=== PATIENT | female | born 1990 | race American Indian/Alaskan Native ===

== ENCOUNTER 2016-07-25 21:32 | Emergency (ER) | payer MEDICAID ==
[2016-07-25 21:47] VITALS: BP 138/95
[2016-07-25] MEDS ORDERED: Sulfamethoxazole/Trimethoprim 800-160 MG Tab PO ONE (22:41)
--- NOTE | 2016-07-25 22:48 | EDM.PDOC ---
ED HPI RENAL/ - General Chief Complaint: Genitourinary Problem Stated Complaint: BLADDER INFECTION Time Seen by Provider: 07/25/16 22:35 Source: Reports: Patient History Limitations: Reports: No limitations - History of Present Illness INITIAL COMMENTS - FREE TEXT/NARRATIVE: 25 yo female here with dysuria. No fever, flank pain, nausea. Symptom Onset Date: 07/25/16 Timing/Duration: Reports: Hour(s):, Gradual onset Location: Reports: urethral Quality: Reports: burning Severity: moderate Improves with: Reports: other (none) Worsens with: Reports: urinating Associated Symptoms: Reports: other (None) Treatment(s) INSIDE UPHOLSTERER: Reports: Other (see below) (None) - Related Data Allergies/ADRs: Allergies Allergy/AdvReac Type Severity Reaction Status Date / Time No Known Allergies Allergy Verified 07/25/16 21:48 Home Meds: Home Meds Amphetamine/Dextroamphetamine [Adderall] 10 mg PO BID 03/22/13 [History] FLUoxetine [PROzac] 10 mg PO DAILY 03/22/13 [History] Fludrocortisone [Florinef] 0.1 mg PO DAILY 03/22/13 [History] Hydrocortisone [Cortef] 5 mg PO BID 03/22/13 [History] Lisinopril 10 mg PO DAILY 03/22/13 [History] traZODone 25 mg PO BEDTIME 03/22/13 [History] Sulfamethoxazole/Trimethoprim [Bactrim Ds Tablet] 1 each PO Q12H #10 tablet [Rx] Past Medical History - Past Health History Medical/Surgical History: Denies Medical/Surgical History Psychiatric History: Reports: ADHD Social & Family History - Tobacco Use Smoking Status *Q: Never Smoker Second Hand Smoke Exposure: No - Alcohol Use Days Per Week of Alcohol Use: 0 - Recreational Drug Use Recreational Drug Use: No ED ROS GENERAL - Review of Systems Review Of Systems: See Below Constitutional: Reports: no symptoms GI/Abdominal: Reports: No symptoms : Reports: dysuria, frequency, urgency. Denies: flank pain, hematuria, incontinence, urinary retention Musculoskeletal: Reports: no symptoms Skin: Reports: no symptoms ED EXAM, RENAL/ - Physical Exam Exam: See Below Exam Limited By: No limitations General Appearance: alert, WD/WN, no apparent distress Eye Exam: bilateral eye: normal inspection Ears: normal external exam, normal canal, hearing grossly normal Nose: normal inspection, normal mucosa, no blood Throat/Mouth: Normal voice, No airway compromise Head: atraumatic, normocephalic Neck: normal inspection Respiratory/Chest: no respiratory distress, no accessory muscle use Back Exam: normal inspection. No: CVA tenderness (R), CVA tenderness (L) Extremities: normal inspection, non-tender, no pedal edema Neurological: alert, oriented, CN II-XII intact, normal cognition, normal gait, no motor/sensory deficits Psychiatric: normal affect, normal mood Skin Exam: Warm, Dry, Intact, Normal color, No rash Lymphatic: no adenopathy Course - Vital Signs Text/Narrative:: Bactrim DS 1 po Last Recorded V/S: Last Vital Signs Temp 36.8 C 07/25/16 21:39 Pulse 94 07/25/16 21:39 Resp 22 H 07/25/16 21:39 BP 138/95 H 07/25/16 21:39 Pulse Ox - Orders/Labs/Meds Orders: Active Orders 24 hr Category Date Time Status CULTURE URINE [RM] Stat Lab 07/25/16 22:38 Ordered Labs: Laboratory Tests 07/25/16 Range/Units 22:17 Urine Color Yellow (YELLOW) Urine Appearance Clear (CLEAR) Urine pH 7.0 H (5.0-6.5) Ur Specific [place] 1.010 (1.010-1.025) Urine Protein Negative (NEGATIVE) mg/dL Urine Glucose (UA) Normal (NEGATIVE) mg/dL Urine Ketones Negative (NEGATIVE) mg/dL Urine Occult Blood Large H (NEGATIVE) Urine Nitrite Negative (NEGATIVE) Urine Bilirubin Negative (NEGATIVE) Urine Urobilinogen Normal (NEGATIVE) mg/dL Ur Leukocyte Esterase Large H (NEGATIVE) Urine RBC 20-30 H (0) Urine WBC 10-20 H (0) Ur Squamous Epith Cells Moderate H (NS,R,O) Urine Bacteria Few H (NS) Meds: Medications Discontinued Medications Generic Name Dose Route Start Last Admin Trade Name Freq PRN Reason Stop Dose Admin Trimethoprim/Sulfamethoxazole 1 tab 07/25/16 22:41 Septra Ds PO 07/25/16 22:42 ONETIME ONE Departure - Departure Time of Disposition: 22:50 Disposition: Home, Self-Care 01 Condition: good Clinical Impression: Cystitis Prescriptions: Sulfamethoxazole/Trimethoprim [Bactrim Ds Tablet] 1 each PO Q12H #10 tablet Referrals: Hanane Irving NP [Primary Care Provider] - Forms: ED Department Discharge Additional Instructions: Take Bactrim DS every 12 hrs until gone. If not any better after 3 days, call your doctor who can check on your urine culture and see if you need a change. May take AZO for the discomfort in the meantime. Drink ample fluids. - My Orders Last 24 Hours: My Active Orders 07/25/16 22:38 CULTURE URINE [RM] Stat - Assessment/Plan Last 24 Hours: My Active Orders 07/25/16 22:38 CULTURE URINE [RM] Stat
== END 2016-07-25 22:56 | disposition home or self-care (01) ==
LOC: FB.ED 21:32
DX: N30.90 Cystitis, unspecified without hematuria (principal)
CPT/HCPCS: 81001; 87086; 99283; A9270

== ENCOUNTER 2018-08-16 23:05 | Emergency (ER) | payer MEDICAID ==
[2018-08-16] MEDS ORDERED: Albuterol 8 GM Inhaler INH ONE (23:06)
[2018-08-16] MEDS ORDERED: Acetaminophen/Codeine 300-30 MG Tab PO ONE (23:06)
[2018-08-16] MEDS ORDERED: Ketorolac 60 MG/2 ML SDV IM ONE (23:39)
--- NOTE | 2018-08-17 00:43 | ER ---
DATE SEEN: 08/16/2018 CHIEF COMPLAINT: Tooth pain. HISTORY OF PRESENT ILLNESS: A 27-year-old female with tooth pain for the last few days, worsened tonight, radiates to the front of face and head causing a headache. REVIEW OF SYSTEMS: Mild sore throat, cough, and shortness of breath. Also, feels anxious. No fever. PAST MEDICAL HISTORY: Hypertension, ADHD, anxiety, and depression. ALLERGIES: None. SOCIAL HISTORY: Smokes occasionally. PHYSICAL EXAMINATION: VITAL SIGNS: Blood pressure 155/110. GENERAL: She is afebrile and normotensive and her oxygenation is normal. CHEST: Clear. HEENT: Oral exam revealed a dental abscess, old cavity rather in the front incisors. NECK: Supple. CARDIOVASCULAR: Normal. CHEST: Clear. MENTAL STATUS: Anxious. LABORATORY DATA: None. IMPRESSION: 1. Dental infection. 2. Headache. 3. Hypertension. 4. Anxiety. PLAN: Ketorolac 60 mg IM. I sent her home with a prescription of Tylenol No. 3 to use p.r.n. every 8 hours and albuterol p.r.n. to use for bronchitis or shortness of breath. She is advised to follow up with PCP or dentist next week. Return to the ED with any worsening symptoms. TIME SEEN: 2335 hours. /[id number] MARYBETH/TREY
[2018-08-17 03:21] VITALS: BP 168/114
== END 2018-08-17 00:40 | disposition home or self-care (01) ==
LOC: FB.ED 23:05
DX: K04.7 Periapical abscess without sinus (principal); F41.9 Anxiety disorder, unspecified; I10 Essential (primary) hypertension; F32.9 Major depressive disorder, single episode, unspecified
CPT/HCPCS: 96372; 99282; A9270; J1885

== ENCOUNTER 2019-03-13 08:39 | Emergency (ER) | payer MEDICAID ==
[2019-03-13] MEDS ORDERED: hydrALAZINE 20 MG/ML SDV IM ONE (08:59)
[2019-03-13] MEDS ORDERED: Aspirin 81 MG Tab.Chew PO ONE (09:00)
[2019-03-13] MEDS ORDERED: Metoprolol Succinate 25 MG Tab.ER PO ONE (09:10)
[2019-03-13 09:15] VITALS: PULSE 101
[2019-03-13] MEDS ORDERED: LORazepam 2 MG/ML SDV IM ONE (09:20)
--- NOTE | 2019-03-13 11:26 | EDM.PDOC ---
ED HPI GENERAL MEDICAL PROBLEM - General Chief Complaint: Chest Pain Stated Complaint: CHEST PAIN Time Seen by Provider: 03/13/19 08:55 Source of Information: Reports: Patient History Limitations: Reports: No Limitations - History of Present Illness INITIAL COMMENTS - FREE TEXT/NARRATIVE: Patient presented to the ED because of chest pain,perioral numbness and tingling ,hyperventilation. The chest pain started when she was hyperventilating ,denies any nausea or diaphoresis but c/o dyspnea. mid chest Pain Score (Numeric/FACES): 3 - Related Data Allergies Allergy/AdvReac Type Severity Reaction Status Date / Time No Known Allergies Allergy Verified 08/17/18 03:41 Home Meds: Home Meds Amphetamine/Dextroamphetamine [Adderall] 20 mg PO BID 03/22/13 [History] FLUoxetine [PROzac] 10 mg PO DAILY 03/22/13 [History] Fludrocortisone [Florinef] 0.1 mg PO DAILY 03/22/13 [History] Hydrocortisone [Cortef] 5 mg PO BID 03/22/13 [History] Lisinopril 20 mg PO DAILY 03/22/13 [History] traZODone 50 mg PO BEDTIME 03/22/13 [History] Potassium Chloride [Klor-Con 10] 40 meq PO DAILY 03/13/19 [History] Sulfamethoxazole/Trimethoprim [Bactrim Ds Tablet] 1 each PO BID #6 tablet [Rx] Past Medical History - Past Health History Medical/Surgical History: Denies Medical/Surgical History Cardiovascular History: Reports: Hypertension Psychiatric History: Reports: ADHD, Depression Social & Family History - Tobacco Use Smoking Status *Q: Never Smoker ED ROS GENERAL - Review of Systems Review Of Systems: See Below Constitutional: Reports: No Symptoms HEENT: Reports: No Symptoms Respiratory: Reports: Shortness of Breath Cardiovascular: Reports: Chest Pain Endocrine: Reports: No Symptoms GI/Abdominal: Denies: Nausea, Vomiting Musculoskeletal: Reports: No Symptoms Skin: Reports: No Symptoms Hematologic/Lymphatic: Reports: No Symptoms ED EXAM, GENERAL - Physical Exam Exam: See Below Exam Limited By: No Limitations General Appearance: Alert, WD/WN, No Apparent Distress Eye Exam: Bilateral Eye: PERRL Ears: Normal External Exam, Normal Canal, Normal TMs Nose: Normal Inspection, Normal Mucosa, No Blood Throat/Mouth: Normal Inspection, Normal Lips, Normal Teeth, Normal Oropharynx, Normal Voice Head: Atraumatic, Normocephalic Neck: Normal Inspection, Supple, Non-Tender GI/Abdominal: Normal Bowel Sounds, Soft, Non-Tender, No Organomegaly, No Distention, No Abnormal Bruit, No Mass, Pelvis Stable (Female) Exam: Other (suprapubic tenderness) Back Exam: Normal Inspection, Full Range of Motion Extremities: Normal Inspection, Normal Range of Motion, Non-Tender, No Pedal Edema, Normal Capillary Refill Course - Vital Signs Text/Narrative:: Labs/EKG/discussed with patient EKG-NSR Trop-neg Patient was found to have hypertensive crisis while in ED and was given: Hydralazine 20 mg IM Metoprolol 25 mg po x1 Norvasc 10 mg po x1 Her BP upon discharge was 141/88 and asymptomatic Last Recorded V/S: Last Vital Signs Temp 36.7 C 03/13/19 12:00 Pulse 101 H 03/13/19 12:00 Resp 17 03/13/19 12:00 BP 141/88 H 03/13/19 12:00 Pulse Ox 98 03/13/19 12:00 - Orders/Labs/Meds Labs: Laboratory Tests 03/13/19 03/13/19 03/13/19 Range/Units 09:30 09:30 09:30 WBC 15.9 H (4.5-12.0) X10-3/uL RBC 5.47 H (3.23-5.20) x10(6)uL Hgb 15.4 (11.5-15.5) g/dL Hct 45.5 (30.0-51.3) % MCV 83.3 (80-96) fL MCH 28.1 (27.7-33.6) pg MCHC 33.7 (32.2-35.4) g/dL RDW 13.9 (11.5-15.5) % Plt Count 368 (125-369) X10(3)uL MPV 8.1 (7.4-10.4) fL Neutrophils % (Manual) 84 H (46-82) % Lymphocytes % (Manual) 14 (13-37) % Monocytes % (Manual) 2 L (4-12) % D-Dimer, Quantitative (0.0-0.59) mg/LFEU Sodium 141 (135-145) mmol/L Potassium 3.1 L (3.5-5.3) mmol/L Chloride 103 (100-110) mmol/L Carbon Dioxide 26 (21-32) mmol/L BUN 10 (7-18) mg/dL Creatinine 0.6 (0.55-1.02) mg/dL Est Cr Clr Drug Dosing 105.34 mL/min Estimated GFR (MDRD) > 60 (>60) BUN/Creatinine Ratio 16.7 (9-20) Glucose 107 (80-116) mg/dL Calcium 8.8 (8.6-10.2) mg/dL Troponin I < 0.017 L (<0.017-0.056) ng/mL Urine Color (YELLOW) Urine Appearance (CLEAR) Urine pH (5.0-6.5) Ur Specific [place] (1.010-1.025) Urine Protein (NEGATIVE) mg/dL Urine Glucose (UA) (NORMAL) mg/dL Urine Ketones (NEGATIVE) mg/dL Urine Occult Blood (NEGATIVE) Urine Nitrite (NEGATIVE) Urine Bilirubin (NEGATIVE) Urine Urobilinogen (NEGATIVE) mg/dL Ur Leukocyte Esterase (NEGATIVE) Urine RBC (0-5) Urine WBC (0-5) Ur Squamous Epith Cells (NS,R,O) Urine Bacteria (NS) 03/13/19 03/13/19 Range/Units 09:30 10:42 WBC (4.5-12.0) X10-3/uL RBC (3.23-5.20) x10(6)uL Hgb (11.5-15.5) g/dL Hct (30.0-51.3) % MCV (80-96) fL MCH (27.7-33.6) pg MCHC (32.2-35.4) g/dL RDW (11.5-15.5) % Plt Count (125-369) X10(3)uL MPV (7.4-10.4) fL Neutrophils % (Manual) (46-82) % Lymphocytes % (Manual) (13-37) % Monocytes % (Manual) (4-12) % D-Dimer, Quantitative 0.27 (0.0-0.59) mg/LFEU Sodium (135-145) mmol/L Potassium (3.5-5.3) mmol/L Chloride (100-110) mmol/L Carbon Dioxide (21-32) mmol/L BUN (7-18) mg/dL Creatinine (0.55-1.02) mg/dL Est Cr Clr Drug Dosing mL/min Estimated GFR (MDRD) (>60) BUN/Creatinine Ratio (9-20) Glucose (80-116) mg/dL Calcium (8.6-10.2) mg/dL Troponin I (<0.017-0.056) ng/mL Urine Color Yellow (YELLOW) Urine Appearance Slightly cloudy (CLEAR) Urine pH 7.0 H (5.0-6.5) Ur Specific [place] 1.010 (1.010-1.025) Urine Protein Negative (NEGATIVE) mg/dL Urine Glucose (UA) Normal (NORMAL) mg/dL Urine Ketones Negative (NEGATIVE) mg/dL Urine Occult Blood Negative (NEGATIVE) Urine Nitrite Negative (NEGATIVE) Urine Bilirubin Negative (NEGATIVE) Urine Urobilinogen Normal (NEGATIVE) mg/dL Ur Leukocyte Esterase Large H (NEGATIVE) Urine RBC 0-5 (0-5) Urine WBC 10-20 H (0-5) Ur Squamous Epith Cells Moderate H (NS,R,O) Urine Bacteria Few H (NS) Meds: Medications Discontinued Medications Generic Name Dose Route Start Last Admin Trade Name Freq PRN Reason Stop Dose Admin Amlodipine Besylate 10 mg 03/13/19 11:45 03/13/19 11:34 Norvasc PO 03/13/19 11:46 10 mg ONETIME ONE Administration Aspirin 324 mg 03/13/19 09:00 03/13/19 09:02 Aspirin PO 03/13/19 09:01 324 mg ONETIME ONE Administration Hydralazine HCl 20 mg 03/13/19 08:59 03/13/19 09:02 Apresoline IM 03/13/19 09:00 20 mg ONETIME ONE Administration Lorazepam 1 mg 03/13/19 09:20 03/13/19 09:25 Ativan IM 03/13/19 09:21 1 mg ONETIME ONE Administration Metoprolol Succinate 25 mg 03/13/19 09:10 03/13/19 09:15 Toprol Xl PO 03/13/19 09:11 25 mg ONETIME ONE Administration Departure - Departure Time of Disposition: 11:30 Disposition: Home, Self-Care 01 Condition: Good Clinical Impression: Hypertension, Anxiety Prescriptions: Sulfamethoxazole/Trimethoprim [Bactrim Ds Tablet] 1 each PO BID #6 tablet Instructions: Urinary Tract Infection, Adult, Living With Anxiety, Hypertension Referrals: PCP,None [Primary Care Provider] - Forms: ED Department Discharge Additional Instructions: please read discharge instructions on high blood pressure,anxiety and uti exercise increase rest for the day bactrim ds twice daily for 3 days follow up with your doctor next week so your doctor can adjust your high blood pressure medication or add a different one
[2019-03-13] MEDS ORDERED: amLODIPine 5 MG Tab PO ONE (11:27)
[2019-03-13] MEDS ORDERED: amLODIPine 10 MG Tab PO ONE (11:45)
[2019-03-13 14:52] VITALS: BP 141/88
== END 2019-03-13 12:19 | disposition home or self-care (01) ==
LOC: FB.ED 08:39
DX: I10 Essential (primary) hypertension (principal); F41.9 Anxiety disorder, unspecified; F90.9 Attention-deficit hyperactivity disorder, unspecified type; F32.9 Major depressive disorder, single episode, unspecified; Z79.899 Other long term (current) drug therapy
CPT/HCPCS: 36415; 71046; 80048; 81001; 84484; 85025; 85379; 93005; 96372; 99284; A9270; J0360; J2060

== ENCOUNTER 2019-10-21 22:52 | Emergency (ER) | payer MEDICAID ==
[2019-10-21 22:59] VITALS: BP 171/109; PULSE 105
[2019-10-21] MEDS ORDERED: Ketorolac 30 MG/ML SDV IVPUSH ONE (23:08)
[2019-10-21] MEDS ORDERED: Sodium Chloride 0.9% 1,000 ML IV ONE (23:08)
--- NOTE | 2019-10-21 23:15 | EDM.PDOC ---
ED HPI GENERAL MEDICAL PROBLEM - General Chief Complaint: Genitourinary Problem Time Seen by Provider: 10/21/19 23:00 Source of Information: Reports: Patient History Limitations: Reports: No Limitations - History of Present Illness INITIAL COMMENTS - FREE TEXT/NARRATIVE: c/o b/l low back pain x 2w pt had worked at [employer] for nearly 2w after being around someone with COVID, pt has had no sxs pt seems worse with activity, not remember when she had her last BM, has had h/o constipation wonders if preg, LMP one month ago with normal flow not able to get into clinic d/t COVID pending and need for 14d quarantine has tried CBD oil, no other OTC meds Treatments [employer]: Reports: Other Medication(s) Bilateral Flank Pain Score (Numeric/FACES): 8 - Related Data Allergies Allergy/AdvReac Type Severity Reaction Status Date / Time No Known Allergies Allergy Verified 10/21/19 22:53 Home Meds: Home Meds Amphetamine/Dextroamphetamine [Adderall] 20 mg PO BID 03/22/13 [History] FLUoxetine [PROzac] 10 mg PO DAILY 03/22/13 [History] Fludrocortisone [Florinef] 0.1 mg PO DAILY 03/22/13 [History] Hydrocortisone [Cortef] 5 mg PO BID 03/22/13 [History] Lisinopril 20 mg PO DAILY 03/22/13 [History] traZODone 50 mg PO BEDTIME 03/22/13 [History] Potassium Chloride [Klor-Con 10] 40 meq PO DAILY 03/13/19 [History] Sulfamethoxazole/Trimethoprim [Bactrim Ds Tablet] 1 each PO BID #6 tablet 03/13/19 [Rx] Past Medical History - Past Health History Medical/Surgical History: Denies Medical/Surgical History Cardiovascular History: Reports: Hypertension Psychiatric History: Reports: ADHD, Depression Social & Family History - Tobacco Use Smoking Status *Q: Never Smoker - Caffeine Use Caffeine Use: Reports: None - Recreational Drug Use Recreational Drug Use: No ED ROS GENERAL - Review of Systems Review Of Systems: See Below Constitutional: Reports: No Symptoms HEENT: Reports: No Symptoms Respiratory: Reports: No Symptoms Cardiovascular: Reports: No Symptoms Endocrine: Reports: No Symptoms GI/Abdominal: Reports: No Symptoms : Reports: No Symptoms Musculoskeletal: Reports: Back Pain Skin: Reports: No Symptoms Neurological: Reports: No Symptoms Psychiatric: Reports: No Symptoms Hematologic/Lymphatic: Reports: No Symptoms Immunologic: Reports: No Symptoms ED EXAM, GENERAL - Physical Exam Exam: See Below Exam Limited By: No Limitations General Appearance: Alert, WD/WN, No Apparent Distress, Anxious Ears: Normal Canal, Hearing Grossly Normal Nose: Normal Inspection, Normal Mucosa Throat/Mouth: Normal Inspection, Normal Lips, Normal Voice, No Airway Compromise Head: Atraumatic, Normocephalic Neck: Normal Inspection, Supple, Non-Tender, Full Range of Motion Respiratory/Chest: No Respiratory Distress, Lungs Clear, Normal Breath Sounds Cardiovascular: Regular Rate, Rhythm, No Edema, No Murmur GI/Abdominal: Normal Bowel Sounds, Soft, Non-Tender, No Organomegaly, No Distention, Other (no abd tender) Back Exam: Normal Inspection, Full Range of Motion, Other (no point tender, no SI joint tender, no iliac crest tender, no spasm). No: CVA Tenderness (R), CVA Tenderness (L) Extremities: Normal Inspection, Normal Range of Motion, Non-Tender, No Pedal Edema Neurological: Alert, Oriented, CN II-XII Intact, Normal Cognition, No Motor/Sensory Deficits Psychiatric: Anxious Skin Exam: Warm, Dry, Intact, Normal Color, No Rash Lymphatic: No Adenopathy Course - Vital Signs Last Recorded V/S: Last Vital Signs Temp 36.6 C 10/21/19 22:52 Pulse 105 H 10/21/19 22:52 Resp 16 10/21/19 22:52 BP 171/109 H 10/21/19 22:52 Pulse Ox 99 10/21/19 22:52 - Orders/Labs/Meds Orders: Active Orders 24 hr Category Date Time Status Abdomen 2V AP Flat Upright [CR] Stat Exams 10/21/19 23:59 Ordered Labs: Laboratory Tests 10/21/19 10/21/19 10/21/19 Range/Units 23:35 23:35 23:35 WBC 15.0 H (4.5-12.0) X10-3/uL RBC 4.91 (3.23-5.20) x10(6)uL Hgb 13.7 (11.5-15.5) g/dL Hct 41.6 (30.0-51.3) % MCV 84.8 (80-96) fL MCH 27.9 (27.7-33.6) pg MCHC 32.8 (32.2-35.4) g/dL RDW 13.6 (11.5-15.5) % Plt Count 338 (125-369) X10(3)uL MPV 7.5 (7.4-10.4) fL Neut % (Auto) 59.3 (46-82) % Lymph % (Auto) 32.1 (13-37) % [place] % (Auto) 6.9 (4-12) % Eos % (Auto) 1 (1.0-5.0) % Baso % (Auto) 1 (0-2) % Neut # (Auto) 8.9 H (1.6-8.3) # Lymph # (Auto) 4.8 (0.6-5.0) # [place] # (Auto) 1.0 (0.0-1.3) # Eos # (Auto) 0.2 (0.0-0.8) # Baso # (Auto) 0.1 (0.0-0.2) # Sodium 139 (135-145) mmol/L Potassium 3.8 (3.5-5.3) mmol/L Chloride 104 (100-110) mmol/L Carbon Dioxide 27 (21-32) mmol/L BUN 14 (7-18) mg/dL Creatinine 0.8 (0.55-1.02) mg/dL Est Cr Clr Drug Dosing TNP Estimated GFR (MDRD) > 60 (>60) BUN/Creatinine Ratio 17.5 (9-20) Glucose 91 (80-116) mg/dL Calcium 8.4 L (8.6-10.2) mg/dL Total Bilirubin 0.4 (0.1-1.3) mg/dL AST 30 H (5-25) IU/L ALT 21 (12-36) U/L Alkaline Phosphatase 46 L (56-112) IU/L C-Reactive Protein 1.0 H (0.5-0.9) mg/dL Total Protein 7.0 (6.0-8.0) g/dL Albumin 3.3 L (3.5-5.2) g/dL Globulin 3.7 g/dL Albumin/Globulin Ratio 0.9 Urine Color (YELLOW) Urine Appearance (CLEAR) Urine pH (5.0-6.5) Ur Specific [place] (1.010-1.025) Urine Protein (NEGATIVE) mg/dL Urine Glucose (UA) (NORMAL) mg/dL Urine Ketones (NEGATIVE) mg/dL Urine Occult Blood (NEGATIVE) Urine Nitrite (NEGATIVE) Urine Bilirubin (NEGATIVE) Urine Urobilinogen (NEGATIVE) mg/dL Ur Leukocyte Esterase (NEGATIVE) Urine RBC (0-5) Urine WBC (0-5) Ur Squamous Epith Cells (NS,R,O) Urine Bacteria (NS) Urine HCG, Qual (NEGATIVE) 10/22/19 10/22/19 Range/Units 00:27 00:27 WBC (4.5-12.0) X10-3/uL RBC (3.23-5.20) x10(6)uL Hgb (11.5-15.5) g/dL Hct (30.0-51.3) % MCV (80-96) fL MCH (27.7-33.6) pg MCHC (32.2-35.4) g/dL RDW (11.5-15.5) % Plt Count (125-369) X10(3)uL MPV (7.4-10.4) fL Neut % (Auto) (46-82) % Lymph % (Auto) (13-37) % [place] % (Auto) (4-12) % Eos % (Auto) (1.0-5.0) % Baso % (Auto) (0-2) % Neut # (Auto) (1.6-8.3) # Lymph # (Auto) (0.6-5.0) # [place] # (Auto) (0.0-1.3) # Eos # (Auto) (0.0-0.8) # Baso # (Auto) (0.0-0.2) # Sodium (135-145) mmol/L Potassium (3.5-5.3) mmol/L Chloride (100-110) mmol/L Carbon Dioxide (21-32) mmol/L BUN (7-18) mg/dL Creatinine (0.55-1.02) mg/dL Est Cr Clr Drug Dosing Estimated GFR (MDRD) (>60) BUN/Creatinine Ratio (9-20) Glucose (80-116) mg/dL Calcium (8.6-10.2) mg/dL Total Bilirubin (0.1-1.3) mg/dL AST (5-25) IU/L ALT (12-36) U/L Alkaline Phosphatase (56-112) IU/L C-Reactive Protein (0.5-0.9) mg/dL Total Protein (6.0-8.0) g/dL Albumin (3.5-5.2) g/dL Globulin g/dL Albumin/Globulin Ratio Urine Color Yellow (YELLOW) Urine Appearance Clear (CLEAR) Urine pH 7.0 H (5.0-6.5) Ur Specific [place] 1.010 (1.010-1.025) Urine Protein Negative (NEGATIVE) mg/dL Urine Glucose (UA) Normal (NORMAL) mg/dL Urine Ketones Negative (NEGATIVE) mg/dL Urine Occult Blood Negative (NEGATIVE) Urine Nitrite Negative (NEGATIVE) Urine Bilirubin Negative (NEGATIVE) Urine Urobilinogen Normal (NEGATIVE) mg/dL Ur Leukocyte Esterase Moderate H (NEGATIVE) Urine RBC 0-5 (0-5) Urine WBC 5-10 H (0-5) Ur Squamous Epith Cells Few H (NS,R,O) Urine Bacteria Few H (NS) Urine HCG, Qual Negative (NEGATIVE) Meds: Medications Discontinued Medications Generic Name Dose Route Start Last Admin Trade Name Amy PRN Reason Stop Dose Admin Sodium Chloride 1,000 mls @ 999 mls/hr 10/21/19 23:08 10/21/19 23:54 Normal Saline IV 10/22/19 00:08 999 mls/hr .BOLUS ONE Administration Ketorolac Tromethamine 30 mg 10/21/19 23:08 10/21/19 23:54 Toradol IVPUSH 10/21/19 23:09 30 mg ONETIME ONE Administration - Re-Assessments/Exams Free Text/Narrative Re-Assessment/Exam: 10/22/19 01:13 hx and PE most c/w low back strain KUB 2v is fairly unremarkable, some stool throughout colon, no excessive, no AFL WBC 15k is mildly concerning altho appears to be baseline as pt has been 13-15k in past, no clinical evidence of infection (u/a neg, abd quite soft and NT in lower quadrants and flanks) pt states she is scheduled to go back to work in 2d, should do okay cannot exclude PID altho pain is back, not pelvis, no vag d/c pt does agree to take ibuprofen Departure - Departure Time of Disposition: 01:15 Disposition: Home, Self-Care 01 Condition: Good Clinical Impression: Low back strain - Discharge Information *PRESCRIPTION DRUG MONITORING PROGRAM REVIEWED*: Not Applicable *COPY OF PRESCRIPTION DRUG MONITORING REPORT IN PATIENT [facility]: Not Applicable Instructions: Lumbar Strain Forms: ED Department Discharge Additional Instructions: For pain and inflammation, take ibuprofen 200 mg 4 tabs 3 times a day for 5 days, longer if needed. Sleep on a firm mattress. Use a heating pad for 10 minutes several times a day. Avoid bending and twisting to the extent possible. To clean out the colon, drink a 10-ounce bottle of magnesium citrate later this morning. May return to work in 2 days. See your doctor in 5 days. Return to Emergency Department if you are feeling worse. Sepsis Event Note (ED) - Evaluation Sepsis Screening Result: No Definite Risk - Focused Exam Vital Signs: Vital Signs Temp Pulse Resp BP Pulse Ox 10/21/19 22:52 36.6 C 105 H 16 171/109 H 99 - My Orders Last 24 Hours: My Active Orders 10/21/19 23:59 Abdomen 2V AP Flat Upright [CR] Stat - Assessment/Plan Last 24 Hours: My Active Orders 10/21/19 23:59 Abdomen 2V AP Flat Upright [CR] Stat
== END 2019-10-22 01:35 | disposition home or self-care (01) ==
LOC: FB.ED 22:52
DX: S39.012A Strain of muscle, fascia and tendon of lower back, initial encounter (principal); I10 Essential (primary) hypertension; F32.9 Major depressive disorder, single episode, unspecified; F90.9 Attention-deficit hyperactivity disorder, unspecified type; Z79.899 Other long term (current) drug therapy; X58.XXXA Exposure to other specified factors, initial encounter
CPT/HCPCS: 36415; 74019; 80053; 81001; 81025; 85025; 86140; 96374; 99283; J1885; J7030; 99282

== ENCOUNTER 2021-02-07 19:14 | Emergency (ER) | payer MEDICAID ==
--- NOTE | 2021-02-07 20:00 | EDM.PDOC ---
ED HPI GENERAL MEDICAL PROBLEM - General Stated Complaint: CIRCULATION ISSUES WITH HBP Time Seen by Provider: 02/07/21 19:35 Source of Information: Reports: Patient, Family History Limitations: Reports: No Limitations - History of Present Illness INITIAL COMMENTS - FREE TEXT/NARRATIVE: Patient presented to the ED because of bilateral hand numbness with brief episode of purplish discoloration. There is no associated pain. - Related Data Allergies Allergy/AdvReac Type Severity Reaction Status Date / Time No Known Allergies Allergy Verified 02/07/21 19:35 Home Meds: Home Meds Amphetamine/Dextroamphetamine [Adderall] 20 mg PO BID 03/22/13 [History] FLUoxetine [PROzac] 10 mg PO DAILY 03/22/13 [History] Fludrocortisone [Florinef] 0.1 mg PO DAILY 03/22/13 [History] Hydrocortisone [Cortef] 5 mg PO BID 03/22/13 [History] Lisinopril 20 mg PO DAILY 03/22/13 [History] traZODone 50 mg PO BEDTIME 03/22/13 [History] Potassium Chloride [Klor-Con 10] 40 meq PO DAILY 03/13/19 [History] Sulfamethoxazole/Trimethoprim [Bactrim Ds Tablet] 1 each PO BID #6 tablet 03/13/19 [Rx] Past Medical History - Past Health History Medical/Surgical History: Denies Medical/Surgical History Cardiovascular History: Reports: Hypertension Psychiatric History: Reports: ADHD, Depression Social & Family History - Family History Family Medical History: No Pertinent Family History - Caffeine Use Caffeine Use: Reports: None ED ROS GENERAL - Review of Systems Review Of Systems: See Below Constitutional: Reports: No Symptoms HEENT: Reports: No Symptoms Respiratory: Reports: No Symptoms Cardiovascular: Reports: No Symptoms Endocrine: Reports: No Symptoms GI/Abdominal: Reports: No Symptoms : Reports: No Symptoms Musculoskeletal: Reports: No Symptoms Skin: Reports: Other (purplish discoloration for less than 5 minutes) ED EXAM, GENERAL - Physical Exam Exam: See Below Exam Limited By: No Limitations General Appearance: Alert, No Apparent Distress Ears: Normal External Exam, Normal Canal, Hearing Grossly Normal Ear Exam: Bilateral Ear: TM Red Nose: Normal Inspection, Normal Mucosa, No Blood Throat/Mouth: Normal Inspection, Normal Lips, Normal Teeth, Normal Oropharynx, Normal Voice Head: Atraumatic, Normocephalic Neck: Normal Inspection, Supple, Non-Tender, Full Range of Motion Respiratory/Chest: No Respiratory Distress, Lungs Clear, Normal Breath Sounds, No Accessory Muscle Use, Chest Non-Tender Cardiovascular: Normal Peripheral Pulses, Regular Rate, Rhythm, No Edema, No Gallop, No JVD, No Murmur, No Rub GI/Abdominal: Normal Bowel Sounds, Soft, Non-Tender, No Organomegaly Back Exam: Normal Inspection, Full Range of Motion Extremities: Normal Inspection, Normal Range of Motion, Non-Tender, No Pedal Edema, Normal Capillary Refill Neurological: Alert, Oriented, CN II-XII Intact Psychiatric: Normal Affect, Normal Mood Course - Vital Signs Text/Narrative:: Reassurance Last Recorded V/S: Last Vital Signs Temp 36.9 C 02/07/21 19:30 Pulse 100 02/07/21 20:19 Resp 18 02/07/21 20:19 BP 135/90 02/07/21 20:19 Pulse Ox 97 02/07/21 20:19 Departure - Departure Time of Disposition: 20:00 Disposition: Home, Self-Care 01 Condition: Good Clinical Impression: Raynauds phenomenon - Discharge Information Instructions: Raynaud Phenomenon Referrals: Hanane Irving NP [Primary Care Provider] - Forms: ED Department Discharge Additional Instructions: Please read discharge instructions on Raynaud's Phenomenon Avoid exposure to cold(especially your hands and feet) If it becomes bothersome-pain on your hands and feet, ulcerations then your doctor might prescribe a calcium channel sweetie
[2021-02-07 20:35] VITALS: PULSE 100
[2021-02-07 20:46] VITALS: BP 135/90
== END 2021-02-07 20:21 | disposition home or self-care (01) ==
LOC: FB.ED 19:14
DX: I73.00 Raynaud's syndrome without gangrene (principal); I10 Essential (primary) hypertension; Z79.899 Other long term (current) drug therapy
CPT/HCPCS: 99283

== ENCOUNTER 2021-02-25 19:46 | Emergency (ER) | payer MEDICAID ==
[2021-02-25] MEDS ORDERED: Azithromycin 250 MG Tab PO ONE (19:47)
--- NOTE | 2021-02-25 20:05 | EDM.PDOC ---
ED HPI GENERAL MEDICAL PROBLEM - General Stated Complaint: COVID SYMPTOMS Time Seen by Provider: 02/25/21 20:02 Source of Information: Reports: Patient History Limitations: Reports: No Limitations - History of Present Illness INITIAL COMMENTS - FREE TEXT/NARRATIVE: Melinda complains of sore throat,ear pain and cough x 1 week. has been taking left over Cephalexin ( 500 mg BID),with no results. Had COVID in 2020,and has been vaccinated. - Related Data Allergies Allergy/AdvReac Type Severity Reaction Status Date / Time No Known Allergies Allergy Verified 02/07/21 19:35 Home Meds: Home Meds Amphetamine/Dextroamphetamine [Adderall] 20 mg PO BID 03/22/13 [History] FLUoxetine [PROzac] 10 mg PO DAILY 03/22/13 [History] Fludrocortisone [Florinef] 0.1 mg PO DAILY 03/22/13 [History] Hydrocortisone [Cortef] 5 mg PO BID 03/22/13 [History] Lisinopril 20 mg PO DAILY 03/22/13 [History] traZODone 50 mg PO BEDTIME 03/22/13 [History] Potassium Chloride [Klor-Con 10] 40 meq PO DAILY 03/13/19 [History] Sulfamethoxazole/Trimethoprim [Bactrim Ds Tablet] 1 each PO BID #6 tablet 03/13/19 [Rx] Past Medical History - Past Health History Medical/Surgical History: Denies Medical/Surgical History Cardiovascular History: Reports: Hypertension Psychiatric History: Reports: ADHD, Depression Endocrine/Metabolic History: Reports: Obesity/BMI 30+, Other (See Below) Other Endocrine/Metabolic History: adrenal hyperplasia - Infectious Disease History Infectious Disease History: Reports: Novel Coronavirus - Past Surgical History Head Surgeries/Procedures: Reports: None Social & Family History - Family History Family Medical History: No Pertinent Family History - Caffeine Use Caffeine Use: Reports: Energy Drinks ED ROS ENT - Review of Systems Review Of Systems: Comprehensive ROS is negative, except as noted in HPI. ED EXAM, ENT - Physical Exam Exam: See Below Exam Limited By: No Limitations General Appearance: Alert, WD/WN Ears: TM Bulging, TM Erythema Nose: Normal Inspection Mouth/Throat: Pharyngeal Erythema, Tonsillar Erythema Head: Atraumatic Neck: Normal Inspection, Lymphadenopathy (R), Lymphadenopathy (L) Respiratory/Chest: No Respiratory Distress, Lungs Clear Cardiovascular: Normal Peripheral Pulses, Regular Rate, Rhythm Departure - Departure Time of Disposition: 20:04 Disposition: Home, Self-Care 01 Condition: Good Clinical Impression: Strep pharyngitis - Discharge Information - Problem List & Annotations (1) Strep pharyngitis SNOMED Code(s): 01248407 Code(s): J02.0 - STREPTOCOCCAL PHARYNGITIS Status: Acute (2) Otitis media SNOMED Code(s): 62940468 Code(s): H66.90 - OTITIS MEDIA, UNSPECIFIED, UNSPECIFIED EAR Status: Acute Qualifiers: Otitis media type: suppurative Chronicity: acute Spontaneous tympanic membrane rupture: without spontaneous rupture - Problem List Review Problem List Initiated/Reviewed/Updated: Yes - My Orders Last 24 Hours: Dm
== END 2021-02-25 20:30 | disposition home or self-care (01) ==
LOC: FB.ED 19:46
DX: J02.0 Streptococcal pharyngitis (principal); I10 Essential (primary) hypertension; E66.9 Obesity, unspecified; Z68.37 Body mass index [BMI] 37.0-37.9, adult; Z86.16 Personal history of COVID-19; Z79.899 Other long term (current) drug therapy
CPT/HCPCS: 99283; A9270

== ENCOUNTER 2022-01-31 16:55 | Emergency (ER) | payer MEDICAID ==
[2022-01-31 17:33] LABS: ESTIMATED GFR 101 mL/min (>60)
[2022-01-31 18:21] VITALS: BP 115/76; PULSE 104
== END 2022-01-31 18:10 | disposition home or self-care (01) ==
LOC: FB.ED 16:55
DX: M54.10 Radiculopathy, site unspecified (principal); M54.31 Sciatica, right side; I10 Essential (primary) hypertension; Z79.899 Other long term (current) drug therapy
CPT/HCPCS: 36415; 80053; 85025; 85379; 99283

== ENCOUNTER 2022-08-20 14:33 | Emergency (ER) | payer MEDICAID ==
[2022-08-20] MEDS ORDERED: Sodium Chloride 0.9% 10 ML Syringe FLUSH PRN (15:00)
[2022-08-20] MEDS ORDERED: Sodium Chloride 0.9% 1,000 ML IV ONE (15:00)
[2022-08-20] MEDS ORDERED: Ondansetron 4 MG/2 ML SDV IVPUSH ONE (15:05)
[2022-08-20 15:21] LABS: BASOPHILS ABSOLUTE AUTO 0.1 x10-3/uL (0.0-0.1); BASOPHILS PERCENT AUTO 0.6 % (0.2-1.5); EOSINOPHILS PERCENT AUTO 0.2 % (0.6-8.1); HEMATOCRIT 41.2 % (34.2-48.2); HEMOGLOBIN 13.7 g/dL (11.4-15.5); LYMPHOCYTES ABSOLUTE AUTO 4.3 x10-3/uL (1.0-4.4); LYMPHOCYTES PERCENT AUTO 31.4 % (18.4-52.1); MEAN CORPUSCULAR HEMOGLOBIN 27.4 pg (23.9-33.9); MEAN CORPUSCULAR HGB CONC 33.1 g/dL (31.9-34.8); MEAN CORPUSCULAR VOLUME 82.8 fL (76.7-100.5); MEAN PLATELET VOLUME 7.3 fL (7.1-12.4); MONOCYTES PERCENT AUTO 7.6 % (4.4-15.7); NEUTROPHILS ABSOLUTE AUTO 8.2 x10-3/uL (1.5-6.3); NEUTROPHILS PERCENT AUTO 60.2 % (30.8-76.2); PLATELET COUNT,PLT 329 x10(3)uL (151-488); RED BLOOD CELL COUNT 4.98 x10(6)uL (3.60-5.20); RED CELL DISTRIBUTION WIDTH 14.8 % (12.3-16.5); WHITE BLOOD CELL COUNT,WBC 13.6 x10-3/uL (3.0-10.3)
[2022-08-20 15:27] LABS: BLOOD UREA NITROGEN,BUN 9 mg/dL (7-18); BUN/CREATININE RATIO 11.3 (9-20); CALCIUM 9.3 mg/dL (8.6-10.2); CARBON DIOXIDE,CO2 26 mmol/L (21-32); CHLORIDE,CL 104 mmol/L (100-110); CREATININE 0.8 mg/dL (0.55-1.02); EST CRCL DRUG DOSING (CG) 73.19 mL/min; ESTIMATED GFR 101 mL/min (>60); GLUCOSE RANDOM 99 mg/dL (80-116); POTASSIUM,K 3.2 mmol/L (3.5-5.3); SODIUM,NA 139 mmol/L (135-145)
[2022-08-20 15:29] LABS: BILIRUBIN,URINE NEGATIVE (NEGATIVE); GLUCOSE,URINE NORMAL (NORMAL); KETONES,URINE 15 mg/dL (NEGATIVE); LEUKOCYTE ESTERASE,URINE SMALL (NEGATIVE); NITRITE,URINE NEGATIVE (NEGATIVE); OCCULT BLOOD,URINE NEGATIVE (NEGATIVE); PROTEIN,URINE NEGATIVE (NEGATIVE); UROBILINOGEN,URINE NORMAL (NEGATIVE)
[2022-08-20 15:32] LABS: A/G RATIO 0.9; ALANINE AMINOTRANSFERASE,ALT 24 U/L (12-36); ALBUMIN 3.6 g/dL (3.5-5.2); ALKALINE PHOSPHATASE 54 IU/L (56-112); ASPARTATE AMNIOTRANSFERASE,AST 22 IU/L (5-25); BILIRUBIN TOTAL 0.5 mg/dL (0.1-1.3); MAGNESIUM 1.8 mg/dL (1.8-2.5); PROTEIN TOTAL,TP 7.6 g/dL (6.0-8.0)
[2022-08-20 15:33] LABS: APPEARANCE,URINE SLIGHTLY CLOUDY (CLEAR); BACTERIA,URINE FEW (NS); COLOR,URINE YELLOW (YELLOW); MUCUS,URINE FEW (NS); RBC,URINE 0-5 (0-5); SQUAMOUS EPITHELIAL CELLS,UR MODERATE (NS,R,O); WBC,URINE 0-5 (0-5)
[2022-08-20 15:35] LABS: C-REACTIVE PROTEIN 1.2 mg/dL (0.5-0.9)
[2022-08-20 16:04] LABS: INFLUENZA A NAA NEGATIVE (NEGATIVE); INFLUENZA B NAA NEGATIVE (NEGATIVE)
[2022-08-20 16:05] LABS: CORONAVIRUS COVID-19 NAA NEGATIVE (NEGATIVE)
[2022-08-20 16:59] VITALS: BP 131/86; PULSE 103
== END 2022-08-20 16:55 | disposition home or self-care (01) ==
LOC: FB.ED 14:33
DX: R00.0 Tachycardia, unspecified (principal); E86.0 Dehydration; F41.9 Anxiety disorder, unspecified; Z20.822 Contact with and (suspected) exposure to COVID-19; I10 Essential (primary) hypertension; J45.909 Unspecified asthma, uncomplicated; E66.9 Obesity, unspecified; Z86.16 Personal history of COVID-19; Z79.899 Other long term (current) drug therapy; Z68.39 Body mass index [BMI] 39.0-39.9, adult
CPT/HCPCS: 0240U; 36415; 80053; 81001; 81025; 83735; 84484; 85025; 85379; 86140; 93005; 96361; 96374; 99285; J2405; J7030

== ENCOUNTER 2022-09-21 20:05 | Emergency (ER) | payer MEDICAID ==
[2022-09-21 20:52] LABS: HEMATOCRIT 41.6 % (34.2-48.2); HEMOGLOBIN 13.8 g/dL (11.4-15.5); MEAN CORPUSCULAR HEMOGLOBIN 27.6 pg (23.9-33.9); MEAN CORPUSCULAR HGB CONC 33.3 g/dL (31.9-34.8); RED BLOOD CELL COUNT 5.01 x10(6)uL (3.60-5.20); RED CELL DISTRIBUTION WIDTH 14.7 % (12.3-16.5); WHITE BLOOD CELL COUNT,WBC 11.9 x10-3/uL (3.0-10.3)
[2022-09-21 21:08] LABS: BILIRUBIN,URINE NEGATIVE (NEGATIVE); COLOR,URINE YELLOW (YELLOW); GLUCOSE,URINE NORMAL (NORMAL); KETONES,URINE NEGATIVE (NEGATIVE); LEUKOCYTE ESTERASE,URINE SMALL (NEGATIVE); NITRITE,URINE NEGATIVE (NEGATIVE); OCCULT BLOOD,URINE NEGATIVE (NEGATIVE); PROTEIN,URINE NEGATIVE (NEGATIVE); UROBILINOGEN,URINE NORMAL (NEGATIVE)
[2022-09-21 21:09] LABS: APPEARANCE,URINE CLEAR (CLEAR); BACTERIA,URINE FEW (NS); MUCUS,URINE FEW (NS); RBC,URINE 0-5 (0-5); SQUAMOUS EPITHELIAL CELLS,UR FEW (NS,R,O); WBC,URINE 0-5 (0-5)
[2022-09-21 21:12] LABS: AMPHETAMINES SCREEN, URINE POSITIVE (NEGATIVE); BARBITURATE SCREEN,URINE NEGATIVE (NEGATIVE); BENZODIAZEPINES SCREEN,URINE NEGATIVE (NEGATIVE); BUPRENORPHINE SCREEN,URINE NEGATIVE (NEGATIVE); METHADONE SCREEN, URINE NEGATIVE (NEGATIVE); METHAMPHETAMINE SCREEN, URINE NEGATIVE (NEGATIVE); OXYCODONE SCREEN,URINE NEGATIVE (NEGATIVE); PROPOXYPHENE SCREEN,URINE NEGATIVE (NEGATIVE); THC SCREEN,URINE NEGATIVE (NEGATIVE)
[2022-09-21 21:33] VITALS: BP 132/79; PULSE 86
== END 2022-09-21 21:26 | disposition home or self-care (01) ==
LOC: FB.ED 20:05
DX: R10.30 Lower abdominal pain, unspecified (principal); I10 Essential (primary) hypertension; J45.909 Unspecified asthma, uncomplicated; E66.9 Obesity, unspecified; Z68.36 Body mass index [BMI] 36.0-36.9, adult; Z86.16 Personal history of COVID-19
CPT/HCPCS: 36415; 80307; 81001; 85027; 99284

== ENCOUNTER 2022-11-27 19:01 | Emergency (ER) | payer MEDICAID ==
[2022-11-27 19:31] VITALS: BP 126/80; PULSE 100
[2022-11-27] MEDS: Ciprofloxacin 500 MG Tab PO ONE (19:52)
== END 2022-11-27 20:03 | disposition home or self-care (01) ==
LOC: FB.ED 19:01
DX: L73.9 Follicular disorder, unspecified (principal); I10 Essential (primary) hypertension; J45.909 Unspecified asthma, uncomplicated; E66.9 Obesity, unspecified; Z68.32 Body mass index [BMI] 32.0-32.9, adult
CPT/HCPCS: 99282; A9270

== ENCOUNTER 2023-01-14 09:50 | Emergency (ER) | payer MEDICAID ==
[2023-01-14] MEDS ORDERED: Ibuprofen 800 MG Tab PO ONE (10:36)
[2023-01-14 10:55] VITALS: BP 133/86; PULSE 111
== END 2023-01-14 10:52 | disposition home or self-care (01) ==
LOC: FB.ED 09:50
DX: R07.89 Other chest pain (principal); S33.5XXA Sprain of ligaments of lumbar spine, initial encounter; J45.909 Unspecified asthma, uncomplicated; E66.9 Obesity, unspecified; I10 Essential (primary) hypertension; Z79.899 Other long term (current) drug therapy
CPT/HCPCS: 93005; 99284; A9270

== ENCOUNTER 2023-03-07 19:23 | Emergency (ER) | payer MEDICAID ==
[2023-03-07] MEDS ORDERED: Nitrofurantoin Monohydrate/Macrocrystalline 100 MG Cap PO ONE (19:24)
[2023-03-07 19:53] LABS: BILIRUBIN,URINE NEGATIVE (NEGATIVE); GLUCOSE,URINE NORMAL (NORMAL); KETONES,URINE 15 mg/dL (NEGATIVE); LEUKOCYTE ESTERASE,URINE LARGE (NEGATIVE); NITRITE,URINE NEGATIVE (NEGATIVE); OCCULT BLOOD,URINE TRACE (NEGATIVE); PROTEIN,URINE TRACE mg/dL (NEGATIVE); UROBILINOGEN,URINE NORMAL (NEGATIVE)
[2023-03-07 19:55] LABS: APPEARANCE,URINE SLIGHTLY CLOUDY (CLEAR); COLOR,URINE ORANGE (YELLOW); RBC,URINE 0-5 (0-5); SQUAMOUS EPITHELIAL CELLS,UR FEW (NS,R,O)
[2023-03-07 19:57] LABS: BACTERIA,URINE MODERATE (NS)
[2023-03-07 20:31] VITALS: BP 122/78; PULSE 94
== END 2023-03-07 20:10 | disposition home or self-care (01) ==
LOC: FB.ED 19:23
DX: N39.0 Urinary tract infection, site not specified (principal); I10 Essential (primary) hypertension; E66.9 Obesity, unspecified; Z68.35 Body mass index [BMI] 35.0-35.9, adult; Z79.899 Other long term (current) drug therapy; Z86.16 Personal history of COVID-19
CPT/HCPCS: 81001; 87086; 99284; A9270-GY

== ENCOUNTER 2023-10-26 21:27 | Emergency (ER) | payer MEDICAID ==
[2023-10-26 23:11] LABS: BILIRUBIN,URINE NEGATIVE (NEGATIVE); GLUCOSE,URINE NORMAL (NORMAL); KETONES,URINE NEGATIVE (NEGATIVE); LEUKOCYTE ESTERASE,URINE LARGE (NEGATIVE); NITRITE,URINE NEGATIVE (NEGATIVE); OCCULT BLOOD,URINE NEGATIVE (NEGATIVE); PROTEIN,URINE NEGATIVE (NEGATIVE); UROBILINOGEN,URINE 1 mg/dL (NEGATIVE)
[2023-10-26 23:20] LABS: APPEARANCE,URINE SLIGHTLY CLOUDY (CLEAR); BACTERIA,URINE MODERATE (NS); COLOR,URINE YELLOW (YELLOW); SQUAMOUS EPITHELIAL CELLS,UR MODERATE (NS,R,O); WBC,URINE 30-40 (0-5)
[2023-10-27] MEDS: Cephalexin 500 MG Cap PO ONE (02:15)
[2023-10-27 02:39] VITALS: BP 143/92; PULSE 88
== END 2023-10-27 02:25 | disposition home or self-care (01) ==
LOC: FB.ED 21:27
DX: N39.0 Urinary tract infection, site not specified (principal); M54.6 Pain in thoracic spine; I10 Essential (primary) hypertension; Z86.16 Personal history of COVID-19; Z90.49 Acquired absence of other specified parts of digestive tract; Z79.899 Other long term (current) drug therapy
CPT/HCPCS: 74176; 81001; 81025; 87086; 99284; A9270-GY

== ENCOUNTER 2023-11-28 10:34 | Emergency (ER) | payer MEDICAID ==
[2023-11-28 11:17] LABS: APPEARANCE,URINE CLOUDY (CLEAR); BACTERIA,URINE FEW (NS); BILIRUBIN,URINE NEGATIVE (NEGATIVE); COLOR,URINE YELLOW (YELLOW); GLUCOSE,URINE NORMAL (NORMAL); KETONES,URINE NEGATIVE (NEGATIVE); LEUKOCYTE ESTERASE,URINE LARGE (NEGATIVE); NITRITE,URINE NEGATIVE (NEGATIVE); OCCULT BLOOD,URINE LARGE (NEGATIVE); PH,URINE 6.5 (5.0-6.5); PROTEIN,URINE NEGATIVE (NEGATIVE); RBC,URINE >100 (0-5); SQUAMOUS EPITHELIAL CELLS,UR RARE (NS,R,O); UROBILINOGEN,URINE NORMAL (NEGATIVE)
[2023-11-28 11:51] LABS: BASOPHILS ABSOLUTE AUTO 0.1 x10-3/uL (0.0-0.1); EOSINOPHILS ABSOLUTE AUTO 0.1 x10-3/uL (0.0-0.8); EOSINOPHILS PERCENT AUTO 0.6 % (0.6-8.1); HEMOGLOBIN 14.7 g/dL (11.4-15.5); LYMPHOCYTES PERCENT AUTO 17.1 % (18.4-52.1); MEAN CORPUSCULAR HEMOGLOBIN 28.1 pg (23.9-33.9); MEAN CORPUSCULAR HGB CONC 33.4 g/dL (31.9-34.8); MEAN CORPUSCULAR VOLUME 84.1 fL (76.7-100.5); MEAN PLATELET VOLUME 7.1 fL (7.1-12.4); MONOCYTES ABSOLUTE AUTO 0.6 x10-3/uL (0.3-1.0); MONOCYTES PERCENT AUTO 5.4 % (4.4-15.7); NEUTROPHILS PERCENT AUTO 75.9 % (30.8-76.2); PLATELET COUNT,PLT 334 x10(3)uL (151-488); RED BLOOD CELL COUNT 5.23 x10(6)uL (3.60-5.20); RED CELL DISTRIBUTION WIDTH 15.1 % (12.3-16.5); WHITE BLOOD CELL COUNT,WBC 11.9 x10-3/uL (3.0-10.3)
[2023-11-28 11:58] LABS: BLOOD UREA NITROGEN,BUN 9 mg/dL (7-18); BUN/CREATININE RATIO 11.3 (9-20); CALCIUM 8.6 mg/dL (8.6-10.2); CARBON DIOXIDE,CO2 29 mmol/L (21-32); CHLORIDE,CL 100 mmol/L (100-110); CREATININE 0.8 mg/dL (0.55-1.02); ESTIMATED GFR 100 mL/min (>60); GLUCOSE RANDOM 86 mg/dL (80-116); POTASSIUM,K 3.6 mmol/L (3.5-5.3); SODIUM,NA 138 mmol/L (135-145)
[2023-11-28 12:05] LABS: A/G RATIO 0.8; ALANINE AMINOTRANSFERASE,ALT 21 U/L (12-36); ALBUMIN 3.4 g/dL (3.5-5.2); ALKALINE PHOSPHATASE 68 IU/L (56-112); ASPARTATE AMNIOTRANSFERASE,AST 14 IU/L (5-25); BILIRUBIN TOTAL 0.4 mg/dL (0.1-1.3); MAGNESIUM 2.1 mg/dL (1.8-2.5); PROTEIN TOTAL,TP 7.5 g/dL (6.0-8.0)
[2023-11-28 12:17] LABS: BILIRUBIN,URINE NEGATIVE (NEGATIVE); GLUCOSE,URINE NORMAL (NORMAL); KETONES,URINE NEGATIVE (NEGATIVE); LEUKOCYTE ESTERASE,URINE LARGE (NEGATIVE); NITRITE,URINE NEGATIVE (NEGATIVE); OCCULT BLOOD,URINE LARGE (NEGATIVE); PROTEIN,URINE NEGATIVE (NEGATIVE); UROBILINOGEN,URINE NORMAL (NEGATIVE)
[2023-11-28 12:21] LABS: APPEARANCE,URINE CLOUDY (CLEAR); BACTERIA,URINE FEW (NS); COLOR,URINE YELLOW (YELLOW); RBC,URINE >100 (0-5); SQUAMOUS EPITHELIAL CELLS,UR RARE (NS,R,O)
[2023-11-28 12:22] LABS: TRICHOMONAS,URINE PRESENT (NS)
[2023-11-28] MEDS: amLODIPine 5 MG Tab PO ONE (12:24)
[2023-11-28] MEDS: Prochlorperazine 10 MG/2 ML SDV IM ONE (12:47)
[2023-11-28] MEDS: Ketorolac 30 MG/ML SDV IM ONE (12:48)
[2023-11-28] MEDS: diphenhydrAMINE 50 MG/ML SDV IM ONE (12:48)
[2023-11-28 13:15] VITALS: BP 141/95; PULSE 85
== END 2023-11-28 14:34 | disposition home or self-care (01) ==
LOC: FB.ED 10:34
DX: R51.9 Headache, unspecified (principal); A59.01 Trichomonal vulvovaginitis; N39.0 Urinary tract infection, site not specified; I10 Essential (primary) hypertension; E66.9 Obesity, unspecified; Z79.899 Other long term (current) drug therapy; Z86.16 Personal history of COVID-19; Z90.49 Acquired absence of other specified parts of digestive tract
CPT/HCPCS: 36415; 70450; 80053; 81001; 81025; 83735; 85025; 87086; 93005; 96372; 99284; A9270-GY; J0780; J1200; J1885

== ENCOUNTER 2024-02-22 20:09 | Emergency (ER) | payer MEDICAID ==
[2024-02-22] MEDS ORDERED: Nitrofurantoin Monohydrate/Macrocrystalline 100 MG Cap PO ONE (20:10)
[2024-02-22 21:16] LABS: BASOPHILS PERCENT AUTO 0.2 % (0.2-1.5); EOSINOPHILS ABSOLUTE AUTO 0.2 x10-3/uL (0.0-0.8); EOSINOPHILS PERCENT AUTO 1.6 % (0.6-8.1); HEMATOCRIT 39.1 % (34.2-48.2); HEMOGLOBIN 13.1 g/dL (11.4-15.5); LYMPHOCYTES ABSOLUTE AUTO 4.2 x10-3/uL (1.0-4.4); LYMPHOCYTES PERCENT AUTO 36.8 % (18.4-52.1); MEAN CORPUSCULAR HEMOGLOBIN 27.8 pg (23.9-33.9); MEAN CORPUSCULAR HGB CONC 33.5 g/dL (31.9-34.8); MONOCYTES ABSOLUTE AUTO 0.8 x10-3/uL (0.3-1.0); MONOCYTES PERCENT AUTO 7.1 % (4.4-15.7); NEUTROPHILS ABSOLUTE AUTO 6.1 x10-3/uL (1.5-6.3); NEUTROPHILS PERCENT AUTO 54.3 % (30.8-76.2); PLATELET COUNT,PLT 299 x10(3)uL (151-488); RED BLOOD CELL COUNT 4.71 x10(6)uL (3.60-5.20); RED CELL DISTRIBUTION WIDTH 14.1 % (12.3-16.5); WHITE BLOOD CELL COUNT,WBC 11.3 x10-3/uL (3.0-10.3)
[2024-02-22 21:17] VITALS: BP 124/80; PULSE 95
[2024-02-22 21:20] LABS: BILIRUBIN,URINE NEGATIVE (NEGATIVE); GLUCOSE,URINE NORMAL (NORMAL); KETONES,URINE NEGATIVE (NEGATIVE); LEUKOCYTE ESTERASE,URINE LARGE (NEGATIVE); NITRITE,URINE NEGATIVE (NEGATIVE); OCCULT BLOOD,URINE TRACE (NEGATIVE); PH,URINE 6.5 (5.0-6.5); PROTEIN,URINE NEGATIVE (NEGATIVE); UROBILINOGEN,URINE NORMAL (NEGATIVE)
[2024-02-22 21:23] LABS: BLOOD UREA NITROGEN,BUN 13 mg/dL (7-18); BUN/CREATININE RATIO 16.3 (9-20); CALCIUM 8.5 mg/dL (8.6-10.2); CARBON DIOXIDE,CO2 27 mmol/L (21-32); CHLORIDE,CL 106 mmol/L (100-110); CREATININE 0.8 mg/dL (0.55-1.02); ESTIMATED GFR 100 mL/min (>60); GLUCOSE RANDOM 104 mg/dL (80-116); SODIUM,NA 142 mmol/L (135-145)
[2024-02-22 21:31] LABS: POTASSIUM,K 2.8 mmol/L (3.5-5.3)
[2024-02-22 21:32] LABS: APPEARANCE,URINE SLIGHTLY CLOUDY (CLEAR); COLOR,URINE YELLOW (YELLOW)
[2024-02-22 21:33] LABS: BACTERIA,URINE FEW (NS); RBC,URINE 0-5 (0-5); SQUAMOUS EPITHELIAL CELLS,UR MODERATE (NS,R,O)
[2024-02-22] MEDS: Potassium Chloride 20 MEQ Tab.ER PO ONE (21:46)
[2024-02-22] MEDS: Iopamidol 755 Mg/ML 100 ML Bottle IV SCH (22:34)
== END 2024-02-22 23:05 | disposition home or self-care (01) ==
LOC: FB.ED 20:09
DX: N30.00 Acute cystitis without hematuria (principal); I10 Essential (primary) hypertension; J45.909 Unspecified asthma, uncomplicated; E66.9 Obesity, unspecified; Z86.16 Personal history of COVID-19; Z90.49 Acquired absence of other specified parts of digestive tract; Z79.899 Other long term (current) drug therapy
CPT/HCPCS: 36415; 74177; 80048; 81001; 85025; 86140; 87086; 99283; 99284; A9270; Q9967

== ENCOUNTER 2024-04-05 17:25 | Emergency (ER) | payer MEDICAID ==
[2024-04-05 17:56] VITALS: BP 135/79; PULSE 88
== END 2024-04-05 18:05 | disposition home or self-care (01) ==
LOC: FB.ED 17:25
DX: S29.011A Strain of muscle and tendon of front wall of thorax, initial encounter (principal); I10 Essential (primary) hypertension; J45.909 Unspecified asthma, uncomplicated; Z86.16 Personal history of COVID-19; Z87.891 Personal history of nicotine dependence; Z79.899 Other long term (current) drug therapy; X58.XXXA Exposure to other specified factors, initial encounter
CPT/HCPCS: 93005; 99284

== ENCOUNTER 2024-10-23 19:13 | Emergency (ER) | payer MEDICAID | END 2024-10-23 20:50 | disposition home or self-care (01) | LOC: FB.ED 19:13 | DX: J10.1 Influenza due to other identified influenza virus with other respiratory manifestations (principal); I10 Essential (primary) hypertension; J45.909 Unspecified asthma, uncomplicated; E66.9 Obesity, unspecified; Z86.16 Personal history of COVID-19; Z79.899 Other long term (current) drug therapy; Z68.32 Body mass index [BMI] 32.0-32.9, adult | CPT/HCPCS: 87428-QW; 87651; 99283 ==